=== PATIENT | male | born 1985 | race Two or more races ===

== ENCOUNTER 2018-01-02 11:13 | Emergency (ER) | payer OTHER ==
[2018-01-02 11:22] VITALS: BP 157/78
--- NOTE | 2018-01-02 11:27 | ER Document Report ---
HPI - HPI Patient complains to provider of: Spider bite left lower leg Pain Level: Denies Context: 32 yo male stung by ? spider under house today left lower leg. He saw spiders under the house. pain traveled up the leg. No chest pain or sob. no n/v or abd. pain. Associated Symptoms: None Exacerbated by: Denies Relieved by: Denies Similar symptoms previously: No Recently seen / treated by doctor: No - ROS ROS below otherwise negative: Yes Systems Reviewed and Negative: Yes All other systems reviewed and negative Past Medical History - General Information source: Patient - Social History Smoking Status: Unknown if Ever Smoked Frequency of alcohol use: None Drug Abuse: None Lives with: Family Family History: Reviewed & Not Pertinent - Medical History Medical History: Negative Skin Medical History: Denies Hx MRSA Surgical Hx: Negative - Immunizations Hx Diphtheria, Pertussis, Tetanus Vaccination: Yes - 02/19/14 Vertical Provider Document - CONSTITUTIONAL Agree With Documented VS: Yes Exam Limitations: No Limitations General Appearance: No Apparent Distress - INFECTION CONTROL TRAVEL OUTSIDE OF THE [place] IN LAST 30 DAYS: No - HEENT HEENT: Normocephalic - NECK Neck: Supple - RESPIRATORY Respiratory: Breath Sounds Normal, No Respiratory Distress - CARDIOVASCULAR Cardiovascular: Regular Rate, Regular Rhythm - MUSCULOSKELETAL/EXTREMETIES Musculoskeletal/Extremeties: MAEW - NEURO Level of Consciousness: Awake - DERM Notes: inflamed deroofed papular 6 mm lesion left lower leg. no lymphangitis. Course - Vital Signs Vital signs: Temp Pulse Resp BP Pulse Ox 98.1 F 66 14 157/78 H 98 01/02/18 11:20 01/02/18 11:20 01/02/18 11:20 01/02/18 11:20 01/02/18 11:20 Discharge - Discharge Clinical Impression: spider bite inflammation and pain Condition: Good Disposition: HOME, SELF-CARE Instructions: Use of Diphenhydramine, Ibuprofen (General) (OM), Insect Bites ( OM) Additional Instructions: Watch the left lower leg area for increased redness and tissue turning black Return to the emergency room for skin removal and treatment if the spider bite turns black or gets worse Benadryl 50 mg every 4-6 hours for the itch Motrin 800 mg 3 times a day as needed for pain Prescriptions: Ibuprofen [Motrin 800 mg Tablet] 800 mg PO Q8HP PRN #30 tablet PRN Reason: Forms: Return to Work
[2018-01-02] MEDS ORDERED: DIPHENHYDRAMINE HCL 50 MG CAPSULE PO ONE (11:32)
[2018-01-02] MEDS ORDERED: IBUPROFEN 800 MG TABLET PO ONE (11:32)
== END 2018-01-02 11:41 | disposition home or self-care (01) ==
LOC: ER 11:13
DX: T63.301A Toxic effect of unspecified spider venom, accidental (unintentional), initial encounter (principal); M79.605 Pain in left leg
CPT/HCPCS: 99282